=== PATIENT | female | born 1950 | race Caucasian/White ===

== ENCOUNTER → 2022-03-12 11:25 | Outpatient (CLI) | payer MEDICARE, SELFPAY ==
--- NOTE | ~2022-03-12 | MM_ITS ---
EXAMINATION: MM screening tom BI w ailyn HISTORY: Screening TECHNIQUE: Craniocaudal and mediolateral oblique 3-D tomosynthesis images were obtained and synthetic 2-D images were generated. CAD analysis was submitted and interpreted. COMPARISON: No prior mammogram is available for comparison at this institution. BREAST PARENCHYMAL COMPOSITION: The breasts are heterogeneously dense, which may obscure small masses FINDINGS: There is asymmetry in the upper outer quadrant of the left breast. There is focal asymmetry in the upper outer quadrant of the right breast anteriorly. IMPRESSION: 1. Bilateral breast asymmetries involving the upper outer quadrants. 2. Additional mammographic views and possible breast ultrasound are recommended. BI-RADS Category 0: Incomplete: Needs additional imaging evaluation. Reviewed, dictated and finalized at location A. IMPRESSION: 1. Bilateral breast asymmetries involving the upper outer quadrants. 2. Additional mammographic views and possible breast ultrasound are recommended . BI-RADS Category 0: Incomplete: Needs additional imaging evaluation.
== END ==
PROVIDERS: PCP Family Medicine; Visit Provider Nurse Practitioner Gerontology
DX: Z12.31 Encounter for screening mammogram for malignant neoplasm of breast (principal); R92.8 Other abnormal and inconclusive findings on diagnostic imaging of breast
CPT/HCPCS: 77063; 77067

== ENCOUNTER → 2022-04-02 08:09 | Outpatient (CLI) | payer MEDICARE, SELFPAY ==
--- NOTE | ~2022-04-02 | MMUS_ITS ---
EXAMINATION: MM diagnostic tom BI w ailyn, US breast BI complete HISTORY: Asymmetry in upper outer quadrant of left breast in anterior upper quadrant of right breast reported on 03/12/2022 screening mammogram examinations TECHNIQUE: Additional 3-D tomosynthesis images of both breasts were performed and synthetic 2-D image s were generated. CAD analysis was submitted and interpreted. High resolution bilateral complete [facility] st ultrasound including all 4 quadrants and subareolar areas was performed. COMPARISON: 03/12/2022 bilateral screening mammogram BREAST PARENCHYMAL COMPOSITION: The breasts are heterogeneously dense, which may obscure small masses . FINDINGS: MAMMOGRAPHIC FINDINGS: No suspicious mass or malignant calcification either breast is noted. There is suggestion of some arc hitectural distortion in the upper central and inner left breast. (MLO Tomosynthesis image 40/69). Heterogeneous asymmetric density of the breasts may obscure masses in either breast. Complete bilater al breast ultrasound examination was performed. ULTRASOUND: Right breast: 12:00 6 cm from nipple: 5 x 5.6 mm cyst with through transmission posterior enhancement 1:00 1 cm from nipple: 2.9 x 4.8 mm cyst with through transmission posterior enhancement 11:00 2 cm from nipple: 3 x 3.9 mm cyst Left breast: 1:00 3 cm from nipple: Parallel circumscribed 3.8 x 5.8 mm hypoechoic lesion without internal vascula rity or posterior shadowing 2:00 6 cm from nipple: 2.6 x 3.2 mm hypoechoic lesion without internal vascularity or posterior shado wing. The margins are mildly irregular. 6 month follow-up ultrasound imaging is recommended 4:00 2 cm from nipple: 2.4 x 4 mm cyst with through transmission posterior enhancement IMPRESSION: 1. Probable benign findings 2. 6 month diagnostic left mammogram and left breast ultrasound follow-up is recommended BI-RADS category 3, probably benign findings. Reviewed, dictated and finalized at location A. STRAINER IMPRESSION: 1. Probable benign findings 2. 6 month diagnostic left mammogram and left breast ultrasound follow-up is re commended BI-RADS category 3, probably benign findings.
== END ==
PROVIDERS: PCP Family Medicine; Visit Provider Physician Assistant
DX: R92.8 Other abnormal and inconclusive findings on diagnostic imaging of breast (principal)
CPT/HCPCS: 76641; 77062; 77066; G0279

== ENCOUNTER → 2022-10-01 08:42 | Outpatient (CLI) | payer MEDICARE, SELFPAY ==
--- NOTE | ~2022-10-01 | MMUS_ITS ---
EXAMINATION: MM diagnostic tom LT w ailyn, US breast LT limited HISTORY: Six-month follow-up for probably benign left breast masses TECHNIQUE: Craniocaudal, mediolateral, and mediolateral oblique 3-D tomosynthesis images of the left breast were performed and synthetic 2-D images were generated. CAD analysis was submitted and interpr eted. High resolution limited left breast ultrasound was performed. COMPARISON: 04/02/2022, 03/12/2022 BREAST PARENCHYMAL COMPOSITION: The breasts are heterogeneously dense, which may obscure small masses . FINDINGS: MAMMOGRAPHIC FINDINGS: No suspicious mass, calcification, or architectural distortion are identified to suggest malignancy. There has been no suspicious interval change. ULTRASOUND: There is a stable 6 mm x 4 mm oval, circumscribed, parallel, hypoechoic mass with no posterior featur es or internal vascularity at the 1:00 location 3 cm from the nipple. Small cysts are also noted in t he upper outer quadrant of the breast. IMPRESSION: 1. Stable, probably benign left breast mass. 2. Recommend 6 month follow-up diagnostic mammogram and left breast ultrasound. BI-RADS category 3, probably benign findings. Reviewed, dictated and finalized at location A. IMPRESSION: 1. Stable, probably benign left breast mass. 2. Recommend 6 month follow-up diagnostic mammogram and left breast ultrasound. BI-RADS category 3, probably benign findings.
== END ==
PROVIDERS: PCP Family Medicine; Visit Provider Physician Assistant
DX: R92.8 Other abnormal and inconclusive findings on diagnostic imaging of breast (principal)
CPT/HCPCS: 76642; 77061; 77065; G0279

== ENCOUNTER 2023-03-14 08:27 | Outpatient (CLI) | payer MEDICARE, SELFPAY ==
--- NOTE | ~2023-03-14 | NM_ITS ---
EXAMINATION: NM brian stress w perfusion DATE: 03/14/2023 12:50 CDT INDICATION: Chest pain TECHNIQUE: Rest images were obtained following intravenous administration of 9.4 mCi Tc99m 30. The pa tient was infused intravenously with Lexiscan (regadenoson). Then, mCi Tc99m tetrofosmin (Myoview) wa s administered intravenously, and stress images were obtained. Data was reconstructed into short axis and horizontal and vertical long axis SPECT images. Gated SPECT images were also obtained. COMPARISON: None. FINDINGS: There is no definite reversible or fixed perfusion abnormality to suggest ischemia or infar ction. There is no segmental wall motion abnormality. Left ventricular ejection fraction measures 7 7%. IMPRESSION: 1. No definite ischemia or infarct. 2. Normal left ventricular ejection fraction measuring 77%. Reviewed, dictated and finalized at location B.
--- NOTE | 2023-03-14 08:39 | ECHO_ITS ---
Patient Info Name: Evelin Harper Age: 73 years : 1950 Gender: Female Ht: 63 in Wt: 188 lbs BSA: 1.98 m2 HR: 80 bpm BP: 134 / 71 mmHg Heart Rhythm: Sinus Rhythm Technical Quality: Fair Exam Date: 03/14/2023 8:52 AM Exam Location: [facility] Patient Status: Outpatient Admit Date: 03/14/2023 Staff Ordering Physician: Tristan Beebe DO Preform Machine Operator: Kaylee Garcia RDCS Attending Provider: Tristan Beebe DO Referring Physician: Abiel PEOPLES; Exam Type: CA echo doppler color flow Study Info Indications R06.09 - Other forms of dyspnea R07.89 - Other chest pain Complete two-dimensional, color flow and Doppler transthoracic echocardiogram is performed. Summary 1. Complete two-dimensional, color flow and Doppler transthoracic echocardiogram is performed. 2. Left ventricular chamber dimension is normal. 3. Left ventricular systolic function is normal, estimated at 65-70%. 4. The left ventricular diastolic function is grade I diastolic dysfunction. 5. E/e' 12 is mildly elevated. 6. There is mild aortic valve sclerosis. 7. There is very mild aortic valve stenosis based on a peak velocity of 196 cm/s, mean gradient of 8 mmHg, and aortic valve area of 2.0 cm2. 8. There is trace mitral valve regurgitation. 9. No pulmonary hypertension, estimated pulmonary arterial systolic pressure is 23 mmHg. Left Ventricle E/e' 12 is mildly elevated. Left ventricular chamber dimension is normal. Left ventricular systolic function is normal, estimated at 65-70%. The left ventricular diastolic function is grade I diastolic dysfunction. Right Ventricle Right ventricular chamber dimension is normal. Right ventricular systolic function is normal. Left Atria Left atrial chamber dimension is normal. Right Atria Right atrial chamber dimension is normal. Aortic Valve There is very mild aortic valve stenosis based on a peak velocity of 196 cm/s, mean gradient of 8 mmHg, and aortic valve area of 2.0 cm2. The aortic valve is probable trileaflet. There is mild aortic valve sclerosis. There is no aortic valve regurgitation. Pulmonic Valve There is no pulmonic regurgitation. Mitral Valve There is no mitral valve stenosis. There is trace mitral valve regurgitation. Tricuspid Valve There is no tricuspid valve regurgitation. No pulmonary hypertension, estimated pulmonary arterial systolic pressure is 23 mmHg. Pericardium/Pleural There is no pericardial effusion. Inferior Vena Cava Normal inferior vena cava with >50% collapse upon inspiration consistent with normal right atrial pressure, 5 mmHg. Aorta The aortic root size at the sinus of Valsalva is normal. Left Ventricular Outflow Tract Name Value Normal LVOT 2D LVOT Diameter 2.0 cm LVOT Doppler LVOT Peak Gradient 5 mmHg LVOT Mean Gradient 2 mmHg LVOT VTI 25 cm LVOT VTI/AV VTI Ratio 0.7 LVOT Stroke Volume 73 ml LVOT CO 5.0 l/min LVOT CI 2.5 l/min/m2 Pulmonic Valve
--- NOTE | 2023-03-14 10:12 | EST_ITS ---
Patient Info Name: Evelin Harper Age: 73 years : 1950 Gender: Female Ht: 63 in Wt: 188 lbs BSA: 1.98 m2 HR: 80 bpm BP: 63 / 59 mmHg Heart Rhythm: Sinus Rhythm Exam Date: 03/14/2023 10:20 AM Exam Location: [facility] Stress Patient Status: Outpatient Admit Date: 03/14/2023 Staff Ordering Physician: Tristan Beebe DO Attending Provider: Tristan Beebe DO Exercise Technologist: Dominique Paniagua CT Exercise Physician: Tristan Beebe DO Exam Type: CA stress brian w NM Study Info Indications Z01.810 - Encounter for preprocedural cardiovascular examination R07.89 - Other chest pain A regadenoson stress test was performed. Summary 1. 1. Negative lexiscan stress test for ischemic ST changes by ECG criteria. 2. 2. Baseline hypertension. 3. 3. Nuclear scan to follow and will be reported separately. Please correlate with it. 4. 4. Patient informed of the above results. Protocol: Lexiscan Stress ECG Details Stage: REST Duration (min): 3 min : 14 sec HR (bpm): 76 SBP (mmHg): 163 DBP (mmHg): 59 Stage: REST Duration (min): 7 min : 52 sec HR (bpm): 82 SBP (mmHg): 163 DBP (mmHg): 59 Stage: STAGE 1 Duration (min): 1 min : 0 sec HR (bpm): 94 SBP (mmHg): 163 DBP (mmHg): 59 Stage: RECOVERY Duration (min): 1 min : 0 sec HR (bpm): 96 SBP (mmHg): 219 DBP (mmHg): 51 Stage: RECOVERY Duration (min): 2 min : 0 sec HR (bpm): 88 SBP (mmHg): 219 DBP (mmHg): 51 Stage: RECOVERY Duration (min): 3 min : 0 sec HR (bpm): 84 SBP (mmHg): 219 DBP (mmHg): 51 Stage: RECOVERY Duration (min): 3 min : 22 sec HR (bpm): 79 SBP (mmHg): 243 DBP (mmHg): 53 Rest HR: 82 bpm Peak HR: 98 bpm Rest Sys BP: 163 mmHg Peak Sys BP: 170 mmHg Max Pred HR: 149 bpm % Max Pred HR: 66 % Target HR: 127 bpm Max RPP: 16,660 bpm*mmHg Termination Reason: Completed protocol Cardiac Symptoms: Shortness of breath Total Time: 1 min : 0 sec Rest Hudson BP: 59 mmHg Peak Hudson BP: 60 mmHg Total Dose: 0.4 mg Resting ECG Sinus rhythm, RBBB. Stress ECG No ST changes. Arrhythmias None. Report Signatures
== END 2023-03-14 08:28 | disposition home or self-care (01) ==
PROVIDERS: PCP Family Medicine; Visit Provider Internal Medicine Cardiovascular Disease
DX: R07.9 Chest pain, unspecified (principal); R06.09 Other forms of dyspnea
CPT/HCPCS: 78452; 93017; 93306; A9502; J2785

== ENCOUNTER 2023-03-23 10:06 | Outpatient (CLI) | payer MEDICARE, SELFPAY ==
[2023-03-23 10:34] LABS: Hematocrit 37.2 % (37.0-47.0); Hemoglobin 12.4 g/dL (12.0-15.0)
[2023-03-23 10:45] LABS: Albumin Level 4.8 g/dL (3.5-5.1); Estimated Glomerular Filt Rate 40
== END 2023-03-23 10:07 | disposition home or self-care (01) ==
PROVIDERS: PCP Family Medicine; Visit Provider Orthopaedic Surgery
DX: M17.0 Bilateral primary osteoarthritis of knee (principal); E78.2 Mixed hyperlipidemia; I10 Essential (primary) hypertension; Z01.818 Encounter for other preprocedural examination
CPT/HCPCS: 36415; 82040; 82565; 85014; 85018

== ENCOUNTER 2023-03-25 10:08 | Outpatient (CLI) | payer MEDICARE, SELFPAY ==
--- NOTE | ~2023-03-25 | CT_ITS ---
EXAMINATION: CT LE LT wo con DATE: 03/25/2023 10:30 INDICATION: Left knee osteoarthritis for preoperative planning TECHNIQUE: High resolution computed tomography (CT) of the left lower extremity from the hip through the ankle was performed without intravenous contrast. Additional sagittal and coronal reconstructions were performed. Automated exposure control and iterative reconstruction technique were employed. The dose-length product was 2093.81 mGy-cm. COMPARISON: Bilateral knee radiographs dated 01/03/2023 FINDINGS: Bone alignment is normal. No fracture. Mild osteoarthritis with no joint effusion at the left hip. Tr icompartmental osteoarthritis at the left knee with moderate size marginal osteophytes in all 3 amber rtments. There is medial compartment predominant joint space narrowing which appears severe on the pr ior weightbearing images and is underestimated on the current nonweightbearing imaging. There is sugg estion of some early remodeling with subarticular eburnation along the anteromedial margin of the med ial tibial plateau. Small left knee joint effusion. Minimal to mild polyarticular osteoarthritis at t he left ankle and visualized mid and hindfoot. Heterotopic ossification along the tibial side of the deep deltoid ligament at the left ankle likely sequela of chronic ankle sprain. Small plantar calcane al spur. Soft tissues in the left lower limb are unremarkable. No pathologically enlarged left pelvic or inguinal lymphadenopathy. IMPRESSION: 1. Severe medial compartment predominant tricompartmental osteoarthritis at the left knee. Reviewed, dictated and finalized at location A.
== END 2023-03-25 10:09 | disposition home or self-care (01) ==
PROVIDERS: PCP Family Medicine; Visit Provider Orthopaedic Surgery
DX: M17.12 Unilateral primary osteoarthritis, left knee (principal)
CPT/HCPCS: 73700

== ENCOUNTER → 2023-04-29 09:12 | Outpatient (CLI) | payer MEDICARE, SELFPAY ==
--- NOTE | ~2023-04-29 | MMUS_ITS ---
EXAMINATION: MM diagnostic tom BI w ailyn, US breast LT limited HISTORY: Six-month follow-up for probably benign left breast mass TECHNIQUE: Craniocaudal, mediolateral, and mediolateral oblique 3-D tomosynthesis images of the ed ts were performed and synthetic 2-D images were generated. CAD analysis was submitted and interpreted . High resolution limited left breast ultrasound was performed. COMPARISON: 10/01/2022, 04/02/2022, 03/12/2022 BREAST PARENCHYMAL COMPOSITION: The breasts are heterogeneously dense, which may obscure small masses . FINDINGS: MAMMOGRAPHIC FINDINGS: No suspicious mass, calcification, or architectural distortion are identified in either breast to sug gest malignancy. There has been no suspicious interval change. ULTRASOUND: There is a stable 6 mm x 4 mm oval, circumscribed, parallel, hypoechoic mass with no posterior featur es or internal vascularity at the 1:00 location, 3 cm from the nipple. Cysts are noted at the 2:00 lo cation, 6 cm from the nipple in the 4:00 location, 2 cm from the nipple. IMPRESSION: 1. Stable, probably benign left breast mass. 2. Given one year of interval stability, recommend 12 month followup bilateral diagnostic mammogram a nd left breast ultrasound. BI-RADS category 3, probably benign findings. Reviewed, dictated and finalized at location A. OLL OFFICER IMPRESSION: 1. Stable, probably benign left breast mass. 2. Given one year of interval stability, recommend 12 month followup bilateral diagnostic mammogram and left breast ultrasound. BI-RADS category 3, probably benign findings.
== END ==
PROVIDERS: PCP Family Medicine; Visit Provider Physician Assistant
DX: R92.8 Other abnormal and inconclusive findings on diagnostic imaging of breast (principal)
CPT/HCPCS: 76642; 77062; 77066; G0279

== ENCOUNTER 2023-05-27 14:15 | Outpatient (CLI) | payer MEDICARE, SELFPAY ==
--- NOTE | ~2023-05-27 | CT_ITS ---
EXAMINATION: CT LE LT wo con DATE: 05/27/2023 15:17 INDICATION: Left knee pain. Preop planning. TECHNIQUE: Computed tomography (CT) of the left lower limb was performed without intravenous contrast . Automated exposure control and iterative reconstruction technique were employed. The dose-length pr oduct was 2089.89 mGy-cm. COMPARISON: CT 03/25/2023, radiographs 01/03/2023 FINDINGS: The left hip demonstrate normal bone alignment. No fracture. There is mild left hip osteoar thritis. The knee demonstrates normal bone alignment. No fracture. There is severe osteoarthritis of medial and patellofemoral compartments and moderate osteoarthritis of lateral compartment. There is a small knee joint effusion. IMPRESSION: 1. Severe left knee osteoarthritis. 2. Small left knee joint effusion. Reviewed, dictated and finalized at location E. MENT EDUCATION SPECIALIST
== END 2023-05-27 14:16 | disposition home or self-care (01) ==
LOC: ANHIMG 14:15
PROVIDERS: PCP Family Medicine; Visit Provider Orthopaedic Surgery
DX: M17.12 Unilateral primary osteoarthritis, left knee (principal)
CPT/HCPCS: 99199

== ENCOUNTER 2023-07-22 11:45 | Outpatient (CLI) | payer MEDICARE, SELFPAY ==
[2023-07-22 13:37] LABS: Basophils Absolute Auto 0.1 K/mm3 (0.0-0.1); Basophils Percent Auto 0.6 % (0.2-1.2); Eosinophils Absolute Auto 0.3 K/mm3 (0-0.3); Eosinophils Percent Auto 3.2 % (0-4.4); Hematocrit 36.7 % (37.0-47.0); Hemoglobin 12.2 g/dL (12.0-15.0); Immature Granulocyte Absolute 0.02 K/mm3 (0.00-0.031); Immature Granulocyte Percent A 0.2 % (0-0.5); Lymphocytes Absolute Auto 2.51 K/mm3 (0.9-3.2); Lymphocytes Percent Auto 26.4 % (18.3-44.2); Mean Corpuscular HGB Conc 33.2 g/dl (32-36); Mean Corpuscular Hemoglobin 31.8 pg (26-34); Mean Corpuscular Volume 95.6 fl (80-100); Mean Platelet Volume 9.3 fl (7.4-10.4); Monocytes Absolute Auto 0.8 K/mm3 (0.1-0.6); Monocytes Percent Auto 8.5 % (2.6-8.5); Neutrophils Absolute Auto 5.8 K/mm3 (1.3-6.7); Neutrophils Percent Auto 61.1 % (45.5-73.1); Platelet Count Result 366 k/mm3 (150-375); Red Blood Count 3.84 M/mm3 (4.2-5.4); Red Cell Distribution Width 12.3 % (11.5-14.5); White Blood Count 9.5 K/mm3 (4.5-10.0)
[2023-07-22 13:45] LABS: Urine Cotinine NEGATIVE
[2023-07-22 13:49] LABS: INR 0.9; Partial Thromboplastin Time 26.6 SECONDS (22.3-36.8); Prothrombin Time 12.1 Seconds (11.1-14.7)
[2023-07-22 13:51] LABS: Albumin Level 5.1 g/dL (3.5-5.1)
[2023-07-22 13:55] LABS: Anion Gap 10 mmol/L (8-16); Blood Urea Nitrogen 29 mg/dL (7-17); Calcium 10.6 mg/dL (8.4-10.2); Carbon Dioxide 26 mmol/L (22-30); Chloride 102 mmol/L (98-107); Estimated Glomerular Filt Rate 44; Glucose 103 mg/dL (65-110); Potassium 4.1 mmol/L (3.4-5.0); Sodium 138 mmol/L (137-145)
[2023-07-22 13:57] LABS: Hemoglobin A1C 5.9 % (<5.7)
[2023-07-22 14:51] LABS: MRSA (PCR) NOT DETECTED (NOT DETECTE)
== END 2023-07-22 11:46 | disposition home or self-care (01) ==
LOC: ANHSURGERY 11:49
PROVIDERS: Anesthesiology; PCP Family Medicine; Visit Provider Orthopaedic Surgery
DX: M17.12 Unilateral primary osteoarthritis, left knee (principal); N18.9 Chronic kidney disease, unspecified; Z51.81 Encounter for therapeutic drug level monitoring; Z01.818 Encounter for other preprocedural examination
CPT/HCPCS: 36415; 80048; 80307; 82040; 83036; 85025; 85610; 85730; 87641

== ENCOUNTER 2023-08-16 01:12 | Day surgery (SDC) | payer MEDICARE, SELFPAY ==
[2023-07-22 12:24] VITALS: BP 131/59; PULSE 76; RESP 16; TEMP 37.1; O2SAT 96; BMI 33.5
--- NOTE | 2023-07-22 12:39 | PC.NURSE ---
Report to the Outpatient Waiting Room, entrance under the green pavilion located off [facility], at time __8:30AM on date __08/16/23 . Planned Procedure Time: __10:30AM . Time changes happen often and if your time is changed the preop area will call you the afternoon before. - You and your visitor will be asked to self-screen and do not enter if you have any COVID symptoms. - A mask is optional within the hospital at this time. Patients may have clear liquids (water, carbonated beverages, clear teas, apple juice) until 3 hours prior to surgery with a maximum of 20 ounces. - No food from midnight until time of surgery. Take the following medications with a SIP of water the morning of surgery: ___NONE DO NOT STOP ANY OF YOUR OTHER PRESCRIPTION MEDICATIONS PRIOR TO SURGERY ?EXCEPT THE FOLLOWING Medications to discontinue per physician __HOLD ALL VITAMINS/SUPPLEMENTS 7 DAYS PRE-OP PER DR BERG Date to take last dose 08/08/23 Please no make-up, nail malawian, hairspray, perfume, deodorant, or body powder the day of surgery. No jewelry (including any body piercings) or valuables the day of surgery, leave them at home. Please take a shower or bath the night before, or the morning of, surgery with an antibacterial soap. Wear comfortable, loose fitting clothing. - Jewelry must be removed prior to entering the operating room. Rings and piercings that are not removed may be cut off. - The hospital will not accept responsibility for valuables. - Please leave all valuables, including medications, at home the day of surgery. If you are going home after surgery, a licensed trailer truck driver must drive you home. - NO public transportation without another adult if you receive anesthesia. - We recommend that an adult stay with you for 24 hours following discharge. - We also recommend that you do not drive, make important decision, drink alcoholic beverages, or take any drugs that were not prescribed by your health care provider for at least 24 hours after your discharge time. Follow any additional instructions given to you from your surgeon. If you or anyone in your household have experienced Covid symptoms in the past week, please notify your surgeon or the nurse liaison at the phone number below for possible testing. Telephone instructions given to ____PATIENT and asked if any additional questions and then verbalized understanding. Patient advised to call surgeon office or pre surgery nurse liaison [phone] if any additional questions.
[2023-08-16] VITALS (16 sets, daily range): BP systolic 125–169; BP diastolic 52–80; PULSE 57–109; RESP 12–21; TEMP 36.3–36.8; O2SAT 92–100
--- NOTE | ~2023-08-16 | XR_ITS ---
EXAMINATION: [id number] DATE: 08/16/2023 12:33 INDICATION: Postoperative evaluation following left total knee arthroplasty. TECHNIQUE: Anteroposterior and lateral views of the left knee were obtained. COMPARISON: CT dated 05/27/2023 FINDINGS: Left total knee arthroplasty with patellar resurfacing appears well seated and in near anatomic align ment. No fractures identified. Expected postoperative subcutaneous and intra-articular gas. IMPRESSION: 1. Left total knee arthroplasty, negative for postoperative purposes. Reviewed, dictated and finalized at location A.
--- NOTE | 2023-08-16 09:28 | WPDHPUPDATE1 ---
History and Physical Update Update Date/Time: 08/16/23 09:28 History and Physical has been reviewed, including an updated exam of the patient. There are NO changes in the patient's condition. Examination Alert oriented. No distress. Unlabored breathing. Slight limp, moderate varus deformity. No instability. Range motion 0 to 90. Trace effusion. No warmth or erythema. No distal edema. Risks, benefits, and alternatives have been discussed and questions answered. Patient agrees to proceed with procedure.
[2023-08-16] MEDS: LACTATED RINGERS 1,000 ML 30 ML IV CONT ×2 (09:45→12:16)
[2023-08-16] MEDS: ACETAMINOPHEN 500 MG TABLET 1000 MG PO ×3 (09:50→23:28)
--- NOTE | 2023-08-16 09:51 | WPDANESEPPF ---
Anes - Initial Pre Proc Eval Procedure: Operation Date: 08/16/23 10:30 Proposed Procedures p Left Total Knee Arthroplasty - Kain Almanza MD Date/Time: 08/16/23 09:51 Surgeon: Kain Almanza MD Pre Op Diagnosis: primary OA left knee Patient Data Age: 73 Gender: F Height: 1.6 m Weight: 85.7 kg Last Vital Signs Temp 98.7 F 07/22/23 12:24 Pulse 76 07/22/23 12:24 Resp 16 07/22/23 12:24 BP 131/59 L 07/22/23 12:24 Pulse Ox 96 07/22/23 12:24 O2 Del Method Room Air 07/22/23 12:24 Allergies Allergy/AdvReac Type Severity Reaction Status Date / Time Yxydajs-JTE-JtS Reductase Allergy Severe Other Verified 07/22/23 12:07 Inhibitor ezetimibe Allergy Intermediate hives, Verified 07/22/23 12:07 BURNING IN THE CHEST lisinopril AdvReac Intermediate cough Verified 07/22/23 12:07 SHELLFISH Allergy Intermediate Facial Uncoded 07/22/23 12:07 Swelling, HIVES Home Medications Medication Instructions Recorded Confirmed Type hjtfpsrblxmu-Is-akrm-minerals 1 tablet PO DAILY 11/04/20 07/22/23 History (Multiple Vitamin, Womens tablet) magnesium 200 mg tablet 250 mg PO BID 09/23/21 07/22/23 History cholecalciferol (vitamin D3) 125 125 mcg PO DAILY 01/03/23 07/22/23 History mcg (5,000 unit) capsule multivitamin,Ca,mineral-folic 1 tablet PO DAILY 01/03/23 07/22/23 History acid-herbal no.157 400 mcg tablet ([place] Maximum Strength) valerian root 500 mg capsule 500 mg PO QHS 01/03/23 07/22/23 History evolocumab 140 mg/mL subcutaneous 140 mg subcut .every 2 weeks #1 mL 06/17/23 07/22/23 Rx syringe (Repatha Syringe) Super Beet 2 gummy PO DAILY 07/22/23 07/22/23 History amlodipine 10 mg tablet 10 mg PO HS 07/22/23 07/22/23 History biotin 1,250 mcg-collagen 50 1 tablet PO QAM 07/22/23 07/22/23 History mg-vit C 67.5 mg-vit E-herbal chew tablet irbesartan 300 1 tablet PO QAM 07/22/23 07/22/23 History mg-hydrochlorothiazide 12.5 mg tablet omega 7-iia-zys-fish oil 100 1 cap PO HS 07/22/23 07/22/23 History mg-160 mg-1,000 mg capsule (Fish Oil) aspirin 81 mg tablet,delayed 81 mg PO BID 14 days #28 tabs 08/16/23 Rx release oxycodone-acetaminophen 5 mg-325 1 - 2 tablet PO Q4-6H PRN pain #30 08/16/23 Rx mg tablet tabs prednisone 5 mg tablet 5 mg PO DAILY 3 weeks #21 tabs 08/16/23 Rx Patient hx anesthesia problems: none Family hx anesthesia problems: none Results Review: All pre-operative results and documents have been reviewed as part of the pre-operative evaluation. FORMERLY [facility], [facility] Past Medical History Medical History Benign essential HTN Bilateral knee swelling Breast cancer screening Elevated BP without diagnosis of hypertension Elevated fasting blood sugar Encounter for medical examination to establish care Fatigue Hyperlipidemia Knee pain Lipid screening Pneumonia Postmenopausal Surgical History Surgical History History of bladder surgery History of hysterectomy for benign disease (~1986) Family History Family History Father Family history of lung disease Unknown History of blood pressure problems Social History Social History Social History: Smoking status: Never smoker Second hand tobacco smoke exposure: No Alcohol intake: never Substance use: never Substance use type: does not use Lack of Transportation: No Lack of Food: Never True Current Housing: I Have Housing Concerned About Future Housing: No Difficulty Paying Gas/Electric Bills: No Difficulty Paying for Meds: No Currently Unemployed: YES Education: Decline to Answer Difficulty w/ Childcare or Family Care: No Living arrangements: with family Additional living arrangements comments:
[2023-08-16] MEDS: ceFAZolin 2 GM/D5W 50 ML 2 GM/50 ML BAG IVPB ×2 (10:08→17:02)
--- NOTE | 2023-08-16 10:35 | WPDANESPNB ---
Anes - Peripheral Nerve Block Date/Time: 08/16/23 10:35 I have discussed with the patient/family/POA the placement of a peripheral nerve block for post-operative pain management, including associated risks, benefits, complications, and side effects. Alternative methods of post-operative analgesia were detailed. Questions were solicited and answers provided to the satisfaction of the patient/family/POA. Time-Out: A pre-procedural Time-Out was completed immediately before starting the procedure and confirmed: Patient Identification, Site, Procedure, Patient Position and the Availability of Requisite Equipment. Clinical Indications: Acute post-operative pain management requested by the operative surgeon. Nerve Block Insertion Note Anes-nerve block: adductor canal left Patient position: supine Skin prep: chlorhexidine Needle: 22 gauge, stimulating, insulated echogenic needle. Needle length: 80 mm Technique: ultrasound Technique comment: mid2mg [id number] Injectate: bupivacaine 0.5% with epi 5 mcg/ml (30ml no epi ) and dexamethasone (mg) (4) Observations: tolerated well Complications: none Procedure start time:: 955 Procedure end time:: 1002
[2023-08-16] MEDS: SODIUM CHLORIDE 0.9% IV 37.7 ML, MORPHINE SULFATE INJ (*CRX) 2 MG, ROPivacaine HCL 1% 2... INFILTRATE (10:42)
--- NOTE | 2023-08-16 15:00 | ADMGEN ---
This patient, Evelin Harper, was admitted to -. Patient/family oriented to hospital policies and general routines including ID bracelet, bed and alarms, visiting hours, pain management, procedures, bathroom and other care routines, personal items, smoking policy, room service/diet, and visiting hours. Information on how to activate the Rapid Response Team has been discussed. Patient/Family are encouraged to report perceived risks to care and to ask questions if they do not understand what they are told or what they should do.
--- NOTE | 2023-08-16 16:50 | P.OP_ITS ---
Procedure Note - Detailed Date of Procedure 08/16/23 Pre-op Diagnosis primary OA left knee Post-op Diagnosis Same Procedure Performed Total knee arthroplasty, left Surgeon Kain Almanza MD Restaurant Assistant Keila Villarreal PA-C Anesthesia General and Regional (subsartorial block) Description of Procedure The patient was brought to the operating room. A general anesthetic was administered. The leg was prepped and draped in the usual sterile fashion. The limb was elevated and the tourniquet inflated to 300 mmHg. A longitudinal incision was created along the medial border of the patella and patellar tendon, and a subvastus approach to the knee was performed. No medial release was taken. The knee was then flexed. The osteophytes were carefully removed. The intramedullary guide was placed in the femoral canal. The distal femoral resection was then taken with the oscillating saw. The collateral ligaments were carefully protected. The tibia was carefully exposed. The jig was applied, and the proximal tibia was resected according to preoperative plan. The knee was balanced in extension. Appropriate releases were taken where needed. The anterior cruciate ligament and meniscal remnants were removed. The posterior cruciate ligament was preserved. The patella was measured. Patellar resection was carried out with the oscillating saw. The lug holes drilled. The femur was sized and rotation assessed using a combination of gap balancing, posterior referencing, and the AP axis. The cuts were caliper confirmed to match the CT preoperative planning software. The 4 in 1 cutting block was used to finish the femoral cuts after equal gaps were assured. The osteophytes were carefully removed from the back of the knee. The knee was copiously irrigated with antibiotic solution periodically throughout the procedure. The meniscal remnants were removed. The spacer block was used to confirm equal flexion and extension gaps. No further releases were needed. The tibia was sized and broached. The bony surfaces were prepared for cementing with pulsatile lavage. The real tibia was cemented into position. The femur was press-fit. The patella was press-fit. Excess cement was carefully removed. Patellar tracking was carefully assessed. No additional releases were required. Copious irrigation then performed. The wound was closed with #1 Vicryl suture, #2, 2-0, and 3-0 barbed suture, followed by Steri-Strips. A sterile bulky dressing was applied. Meticulous hemostasis was maintained throughout the procedure, and the bipolar cautery device was used. The pain relieving mixture was injected into the periarticular tissues during the procedure. There were no complications. The patient was extubated and brought to the recovery room in stable condition after the application of sterile dressing with Fan bandage. Implants [employer] Triathlon knee system, low profile cemented tibia size 3, press-fit cruciate retaining femoral component size 3, 11 mm cruciate retaining polyethylene insert. 35mm asymmetric tritanium patella component. Estimated Blood Loss 100 Drains No Pathology None sent Complications No immediate complications Condition Stable Disposition PACU [facility] Billing Surgery - Charge Forward: Surgery Billing
[2023-08-16] MEDS: ASPIRIN 81 MG ENTERIC TABLET PO (17:03)
[2023-08-16] MEDS: SENNA/DOCUSATE SODIUM TABLET 2 TAB PO (17:03)
[2023-08-16] MEDS: oxyCODONE HCL (*CRX) 5 MG TAB IR PO (20:32)
[2023-08-16] MEDS: FAMOTIDINE 20 MG TABLET PO (20:32)
[2023-08-16] MEDS: amLODIPine BESYLATE 5 MG TABLET 10 MG PO (20:32)
[2023-08-17 00:17] VITALS: BP 124/61; PULSE 101; RESP 18; TEMP 37; O2SAT 94
[2023-08-17] MEDS: ceFAZolin 2 GM/D5W 50 ML 2 GM/50 ML BAG IVPB ×2 (02:59→09:14)
[2023-08-17 05:27] VITALS: BP 125/55; PULSE 81; RESP 16; TEMP 36.9; O2SAT 96
[2023-08-17] MEDS: ACETAMINOPHEN 500 MG TABLET 1000 MG PO ×2 (05:33→11:22)
[2023-08-17 05:48] LABS: Basophils Percent Auto 0.1 % (0.2-1.2); Hematocrit 32.8 % (37.0-47.0); Immature Granulocyte Absolute 0.08 K/mm3 (0.00-0.031); Immature Granulocyte Percent A 0.5 % (0-0.5); Lymphocytes Absolute Auto 1.29 K/mm3 (0.9-3.2); Lymphocytes Percent Auto 7.8 % (18.3-44.2); Mean Corpuscular HGB Conc 33.5 g/dl (32-36); Mean Corpuscular Hemoglobin 31.7 pg (26-34); Mean Corpuscular Volume 94.5 fl (80-100); Mean Platelet Volume 9.4 fl (7.4-10.4); Monocytes Absolute Auto 1.6 K/mm3 (0.1-0.6); Monocytes Percent Auto 9.8 % (2.6-8.5); Neutrophils Absolute Auto 13.5 K/mm3 (1.3-6.7); Neutrophils Percent Auto 81.8 % (45.5-73.1); Platelet Count Result 328 k/mm3 (150-375); Red Blood Count 3.47 M/mm3 (4.2-5.4); White Blood Count 16.6 K/mm3 (4.5-10.0)
[2023-08-17 06:01] LABS: Anion Gap 10 mmol/L (4-12); Blood Urea Nitrogen 34 mg/dL (7-17); Calcium 9.3 mg/dL (8.4-10.2); Carbon Dioxide 22 mmol/L (22-30); Chloride 104 mmol/L (98-107); Estimated CRCL calculation 37 ml/min; Estimated Glomerular Filt Rate 40; Glucose 118 mg/dL (65-110); Potassium 4.2 mmol/L (3.4-5.0); Sodium 136 mmol/L (137-145)
--- NOTE | 2023-08-17 08:07 | PM.DS ---
DS: Admitting Diagnosis Discharge Date 08/17/23 Admitting Diagnosis OA knee Left DS: Discharge Diagnosis Discharge Diagnosis (1) Status post total left knee replacement: Code(s): Z96.652 - Presence of left artificial knee joint Status: Acute Assessment and Plan: Postop day 1: Left total knee arthroplasty. Patient tolerated procedure well. No complications. Pain manageable with pain medication. No numbness or tingling. We had a lengthy discussion regarding postoperative wound care, limitations, expectations, and exercises. Patient shows good understanding. She has had initial physical therapy and is tolerating it well. DVT prophylaxis: 81 mg baby aspirin b.i.d. for 14 days. Pain medication: Percocet. Ibuprofen. Prednisone. Patient has followup appointment with Dr. Almanza in 3 weeks. DS: Summary Hospital Course Reason for hospitalization: Total knee arthroplasty Hospital Course: Patient tolerated procedure well. Has had initial PT/OT. Status at Discharge Functional status at discharge: uses cane/walker Overall status at discharge: patient is progressing back to baseline Time Spent with Patient Time attestation: Total time spent providing and/or coordinating discharge services: Exam Narrative: 73-year-old overweight female. Resting comfortably in bed. Alert and oriented x3. No acute distress. Wearing compression socks bilaterally. Dressing intact with pea sized area of dried bloody drainage on Mepilex. Mild swelling. No ecchymosis. No erythema. No hematoma. Excellent quad function. Range of motion limited due to pain. 0-100. Calf nontender. Neurologic status intact. No varicosities. Distal pulses palpable. DS: Data Data Completed and Pending Labs on day of discharge: Labs from last 24 hours 08/17/23 08/16/23 04:57 09:39 WBC 16.6 H RBC 3.47 L Hgb 11.0 L Hct 32.8 L MCV 94.5 MCH 31.7 MCHC 33.5 RDW 12.0 Plt Count 328 MPV 9.4 Immature Gran % (Auto) 0.5 Neut % (Auto) 81.8 H Lymph % (Auto) 7.8 L Tripp % (Auto) 9.8 H Eos % (Auto) 0.0 Baso % (Auto) 0.1 L Lymph # (Auto) 1.29 Tripp # (Auto) 1.6 H Eos # (Auto) 0.0 Baso # (Auto) 0.0 Abs Immat Gran (auto) 0.08 H Absolute Neuts (auto) 13.5 H Absolute Nucleated RBC 0.000 Nucleated RBC % 0.0 Sodium 136 L Potassium 4.2 Chloride 104 Carbon Dioxide 22 Anion Gap 10 BUN 34 H Creatinine 1.30 H Estim Creat Clear Calc 37 Estimated GFR 40 L Glucose 118 H Calcium 9.3 Blood Type B Positive Antibody Screen Negative Discharge Plan Discharge Patient Disposition: Home, Self-Care Discharge Instructions: See green instruction sheets Stand Alone Forms: General Discharge Instructions Follow-up/Referrals: Keila Villarreal PA [Physician Passenger Car Inspector] - Discharge Medications: New aspirin 81 mg tablet,delayed release (DR/EC) 81 mg PO BID 14 Days Qty: 28 0RF oxycodone-acetaminophen 5-325 mg tablet 1 - 2 tablet PO Q4-6H MDD 6 PRN (Reason: pain) Qty: 30 0RF prednisone 5 mg tablet 5 mg PO DAILY 21 Days Qty: 21 0RF Continued Multiple Vitamin, Womens Tablet 1 tablet PO DAILY Estroven Maximum Strength 400 mcg tablet 1 tablet PO DAILY cholecalciferol (vitamin D3) 125 mcg (5,000 unit) capsule 125 mcg PO DAILY valerian root 500 mg capsule 500 mg PO QHS Repatha Syringe 140 mg/mL syringe 140 mg subcut .every 2 weeks Qty: 1 11RF owoufi-jijcpnha-mxh C-E-herbal 1,250 mcg-50 mg -67.5 mg-15 mg tablet,chewable 1 tablet PO QAM Fish Oil 100-160-1,000 mg capsule 1 cap PO HS magnesium 200 mg tablet 250 mg PO BID Super Beet 2 gummy PO HS amlodipine 10 mg tablet 10 mg PO HS irbesartan-hydrochlorothiazide 300-12.5 mg tablet 1 tablet PO QAM
[2023-08-17] MEDS: FAMOTIDINE 20 MG TABLET PO (09:12)
[2023-08-17] MEDS: hydroCHLOROthiazide 12.5 MG CAPSULE PO (09:12)
[2023-08-17] MEDS: SENNA/DOCUSATE SODIUM TABLET 2 TAB PO (09:12)
[2023-08-17] MEDS: predniSONE 5 MG TABLET PO (09:12)
[2023-08-17] MEDS: ASPIRIN 81 MG ENTERIC TABLET PO (09:12)
[2023-08-17] MEDS: IRBESARTAN 150 MG TABLET 300 MG PO (09:12)
[2023-08-17] MEDS: oxyCODONE HCL (*CRX) 5 MG TAB IR PO (09:13)
== END 2023-08-17 12:30 | disposition home or self-care (01) ==
LOC: ANHSURGERY 08:22 → ANH2MED 16:01
PROVIDERS: Physician Assistant Surgical; PCP Family Medicine; Visit Provider Orthopaedic Surgery
PROC: (CPT 27447; principal; 2023-08-16 10:30)
DX: M17.12 Unilateral primary osteoarthritis, left knee (principal); G89.18 Other acute postprocedural pain; I10 Essential (primary) hypertension; E78.5 Hyperlipidemia, unspecified; E66.9 Obesity, unspecified; Z68.33 Body mass index [BMI] 33.0-33.9, adult
CPT/HCPCS: 27447; 64447; 36415; 73560; 80048; 80307; 82040; 83036; 85025; 85610; 85730; 86850; 86900; 86901; 87641; 97110; 97161; 97165; A9270; C1713; C1776; J0171; J0690; J1100; J1885; J2250; J2270; J2405; J2704; J2795; J3010; J7120; J7512

== ENCOUNTER 2023-11-22 09:43 | Outpatient (CLI) | payer MEDICARE, SELFPAY ==
--- NOTE | ~2023-11-22 | US_ITS ---
EXAMINATION: US renal BI DATE: 11/22/2023 12:58 INDICATION: Hypertensive chronic kidney disease TECHNIQUE: Multiple ultrasound grayscale images of the kidneys were obtained. COMPARISON: None. FINDINGS: The right kidney measures 10.5 x 5.7 x 4.6 cm. The left kidney measures 8.2 x 4.8 x 5.8 cm. The kidne ys demonstrate normal echogenicity. There are bilateral anechoic renal cysts measuring 1.3 similar on the right and 1.7 cm and 1.1 cm on the left. There is no hydronephrosis in either kidney. No stones identified. The bladder is normal. IMPRESSION: 1. Simple appearing bilateral renal cysts measuring up to 1.7 cm on the left. Otherwise normal kidne ys with no hydronephrosis. Reviewed, dictated and finalized at location B. IMPRESSION: 1. Simple appearing bilateral renal cysts measuring up to 1.7 cm on the left. Otherwise normal kidneys with no hydronephrosis.
== END 2023-11-22 09:44 ==
LOC: MICIMG 09:44
PROVIDERS: PCP Family Medicine; Visit Provider Internal Medicine Nephrology
DX: E55.9 Vitamin D deficiency, unspecified (principal); I12.9 Hypertensive chronic kidney disease with stage 1 through stage 4 chronic kidney disease, or unspecified chronic kidney disease; N18.32 Chronic kidney disease, stage 3b; N25.81 Secondary hyperparathyroidism of renal origin; N28.1 Cyst of kidney, acquired
CPT/HCPCS: 76775

== ENCOUNTER 2024-08-27 10:28 | Outpatient (CLI) | payer MEDICARE, SELFPAY ==
--- NOTE | ~2024-08-27 | XR_ITS ---
Left Hand Technique: PA, oblique, and lateral views were obtained. Clinical History: Carpal tunnel syndrome Findings: No acute fracture or dislocation is seen. Osseous alignment is anatomic. There is moderate degenerative change of the first CMC joint. There is advanced degenerative change of the third DIP kayleen int. There is mild degenerative change of the second DIP joint.. Soft tissues are unremarkable. Impression: Degenerative changes, as above. Reviewed, dictated and finalized at location M. Impression: Degenerative changes, as above.
--- NOTE | ~2024-08-27 | XR_ITS ---
Right Hand Technique: PA, oblique, and lateral views were obtained. Clinical History: Carpal tunnel syndrome Findings: No acute fracture or dislocation is seen. Osseous alignment is anatomic. There is moderate degenerative change of the first CMC joint. There is moderate degenerative change of the DIP joints i n the fingers.. Soft tissues are unremarkable. Impression: Degenerative changes, as above. Reviewed, dictated and finalized at location M. Impression: Degenerative changes, as above.
== END 2024-08-27 10:29 | disposition home or self-care (01) ==
PROVIDERS: PCP Family Medicine; Visit Provider Plastic Surgery
DX: G56.03 Carpal tunnel syndrome, bilateral upper limbs (principal); M19.041 Primary osteoarthritis, right hand; M19.042 Primary osteoarthritis, left hand
CPT/HCPCS: 73130

== ENCOUNTER 2024-09-05 08:55 | Outpatient (CLI) | payer MEDICARE, SELFPAY ==
--- NOTE | 2024-09-05 09:12 | ECG_ITS ---
Test Date: 2024-09-05 09:27:32 Measurements Intervals Coffey Rate: 70 P: 39 MA: 138 QRS: -3 QRSD: 101 T: 33 QT: 388 QTc: 419 Interpretive Statements SINUS RHYTHM LOW QRS VOLTAGE IN PRECORDIAL LEADS INCOMPLETE RIGHT BUNDLE BRANCH BLOCK CONSIDER INFERIOR INFARCT, AGE INDETERMINATE BASELINE ARTIFACT- II, III, AVF ABNORMAL ECG No previous ECG available for comparison Electronically Signed On 09-05-2024 09:42:55 CDT by Tristan Beebe D.O.
[2024-09-05 09:16] LABS: Hematocrit 40.1 % (37.0-47.0); Hemoglobin 13.5 g/dL (12.0-15.0)
[2024-09-05 09:31] LABS: Albumin Level 4.7 g/dL (3.5-5.1); Estimated Glomerular Filt Rate 47; Glucose 113 mg/dL (65-110)
[2024-09-05 09:37] LABS: Hemoglobin A1C 5.9 % (<5.7)
== END 2024-09-05 08:56 | disposition home or self-care (01) ==
PROVIDERS: PCP Family Medicine; Visit Provider Orthopaedic Surgery
DX: R73.09 Other abnormal glucose (principal); R79.89 Other specified abnormal findings of blood chemistry; I12.9 Hypertensive chronic kidney disease with stage 1 through stage 4 chronic kidney disease, or unspecified chronic kidney disease; M17.11 Unilateral primary osteoarthritis, right knee; Z01.818 Encounter for other preprocedural examination; N18.9 Chronic kidney disease, unspecified
CPT/HCPCS: 36415; 82040; 82565; 82947; 83036; 85014; 85018; 93005

== ENCOUNTER 2024-10-17 09:35 | Outpatient (CLI) | payer MEDICARE, SELFPAY ==
--- NOTE | 2024-10-17 11:30 | NEURO_ITS ---
Impression: # Complains of numbness of hands. ? # Evolving right Carpal Tunnel Syndrome. ? 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 ? # Normal needle/EMG exam. ?Nerve Conduction Studies Anti Sensory Summary Table ?Stim Site NR Peak (ms) P-T Amp (?V) Site1 Site2 Delta-P (ms) Dist (cm) Hernando (m/s) Left Median Anti Sensory (2-3nd Digit) Wrist ? 3.3 25.9 Wrist 2-3nd Digit 3.3 14.0 42 Wrist ? 3.2 35.8 Wrist 2-3nd Digit 3.3 14.0 42 Right Median Anti Sensory (2-3nd Digit) Wrist ? 4.6 34.5 Wrist 2-3nd Digit 4.6 14.0 30 Wrist ? 3.3 15.9 Wrist 2-3nd Digit 4.6 14.0 30 Left Radial Anti Sensory (Base 1st Digit) Wrist ? 2.4 5.2 Wrist Base 1st Digit 2.4 0.0 Right Radial Anti Sensory (Base 1st Digit) Wrist ? 2.8 11.7 Wrist Base 1st Digit 2.8 0.0 Left Ulnar Anti Sensory (5th Digit) Wrist ? 2.7 17.3 Wrist 5th Digit 2.7 14.0 52 Right Ulnar Anti Sensory (5th Digit) Wrist ? 2.4 29.5 Wrist 5th Digit 2.4 14.0 58 Motor Summary Table ?Stim Site NR Onset (ms) O-P Amp (mV) Site1 Site2 Delta-0 (ms) Dist (cm) Hernando (m/s) Left Median Motor (Abd Poll Brev) Wrist ? 3.4 2.2 Elbow Wrist 5.2 27.0 52 Elbow ? 8.6 1.7 Right Median Motor (Abd Poll Brev) Wrist ? 3.9 2.3 Elbow Wrist 4.9 26.0 53 Elbow ? 8.8 3.1 Left Ulnar Motor (Abd Dig Minimi) Wrist ? 2.5 4.6 A Elbow Wrist 4.8 27.0 56 A Elbow ? 7.3 5.0 B Elbow Wrist 4.1 19.0 46 B Elbow ? 6.6 3.6 Right Ulnar Motor (Abd Dig Minimi) Wrist ? 2.3 5.2 A Elbow Wrist 5.4 27.0 50 A Elbow ? 7.7 4.0 B Elbow Wrist 3.8 20.0 53 B Elbow ? 6.1 3.8 F Wave Studies ?NR F-Lat (ms) L-R F-Lat (ms) Left Median (Mrkrs) (Abd Poll Brev) ? 29.14 0.43 Right Median (Mrkrs) (Abd Poll Brev) ? 28.71 0.43 Left Ulnar (Mrkrs) (Abd Dig Min) ? 28.89 0.06 Right Ulnar (Mrkrs) (Abd Dig Min) ? 28.95 0.06 EMG ?Side Muscle Nerve Root Ins Act Fibs Amp Dur Recrt Comment Right 1stDorInt Ulnar C8-T1 Nml Nml Nml Nml Nml Right Ext Indicis Radial (Post Int) C7-8 Nml Nml Nml Nml Nml Right Ext Digitorum Radial (Post Int) C7-8 Nml Nml Nml Nml Nml Right BrachioRad Radial C5-6 Nml Nml Nml Nml Nml Right PronatorTeres Median C6-7 Nml Nml Nml Nml Nml Right Abd Poll Brev Median C8-T1 Nml Nml Nml Nml Nml Right ABD Dig Min Ulnar C8-T1 Nml Nml Nml Nml Nml Right FlexPolLong Median (Ant Int) C7-8 Nml Nml Nml Nml Nml Right Abd Poll Long Radial (Post Int) C7-8 Nml Nml Nml Nml Nml Left 1stDorInt Ulnar C8-T1 Nml Nml Nml Nml Nml Left Ext Indicis Radial (Post Int) C7-8 Nml Nml Nml Nml Nml Left Ext Digitorum Radial (Post Int) C7-8 Nml Nml Nml Nml Nml Left BrachioRad Radial C5-6 Nml Nml Nml Nml Nml Left PronatorTeres Median C6-7 Nml Nml Nml Nml Nml Left Abd Poll Brev Median C8-T1 Nml Nml Nml Nml Nml Left ABD Dig Min Ulnar C8-T1 Nml Nml Nml Nml Nml Left FlexPolLong Median (Ant Int) C7-8 Nml Nml Nml Nml Nml Left Abd Poll Long Radial (Post Int) C7-8 Nml Nml Nml Nml Nml
== END 2024-10-17 09:36 | disposition home or self-care (01) ==
PROVIDERS: PCP Family Medicine; Visit Provider Plastic Surgery
DX: G56.03 Carpal tunnel syndrome, bilateral upper limbs (principal); G56.21 Lesion of ulnar nerve, right upper limb
CPT/HCPCS: 95886; 95911

== ENCOUNTER 2024-11-30 08:45 | Outpatient (CLI) | payer MEDICARE, SELFPAY ==
[2024-11-30 10:19] LABS: Hematocrit 38.1 % (37.0-47.0); Hemoglobin 12.9 g/dL (12.0-15.0); Immature Granulocyte Percent A 0.3 % (0-0.5); Lymphocytes Absolute Auto 1.59 K/mm3 (0.9-3.2); Mean Corpuscular HGB Conc 33.9 g/dl (32-36); Mean Corpuscular Hemoglobin 31.0 pg (26-34); Mean Corpuscular Volume 91.6 fl (80-100); Nucleated Red Blood Cells Absolute Auto 0.000 K/mm3 (0.0-0.012); Nucleated Red Blood Cells Perc 0.0 % (0.0-0.2); Platelet Count Result 321 k/mm3 (150-375); Red Blood Count 4.16 M/mm3 (4.2-5.4); White Blood Count 6.9 K/mm3 (4.5-10.0)
[2024-11-30 10:29] LABS: Albumin Level 4.7 g/dL (3.5-5.1); Hemoglobin A1C 5.7 % (<5.7)
[2024-11-30 10:30] LABS: INR 0.9; Partial Thromboplastin Time 27.3 Seconds (22.3-36.8); Prothrombin Time 12.4 Seconds (11.1-14.7)
[2024-11-30 10:31] LABS: Anion Gap 10 mmol/L (4-12); Blood Urea Nitrogen 22 mg/dL (7-17); Calcium 9.8 mg/dL (8.4-10.2); Carbon Dioxide 24 mmol/L (22-30); Chloride 104 mmol/L (98-107); Estimated Glomerular Filt Rate 51; Glucose 104 mg/dL (65-110); Potassium 4.1 mmol/L (3.4-5.0); Sodium 138 mmol/L (137-145)
[2024-11-30 11:32] LABS: MRSA (PCR) NOT DETECTED (NOT DETECTE)
== END 2024-11-30 08:46 | disposition home or self-care (01) ==
LOC: ANHSURGERY 08:48
PROVIDERS: Anesthesiology; PCP Family Medicine; Visit Provider Orthopaedic Surgery
DX: M17.11 Unilateral primary osteoarthritis, right knee (principal); N18.32 Chronic kidney disease, stage 3b; Z01.818 Encounter for other preprocedural examination
CPT/HCPCS: 36415; 80048; 80307; 82040; 83036; 85025; 85610; 85730; 87641

== ENCOUNTER 2025-02-06 07:31 | Outpatient (CLI) | payer MEDICARE, SELFPAY ==
--- NOTE | ~2025-02-06 | NM_ITS ---
EXAMINATION: NM brian stress w perfusion DATE: 02/06/2025 10:43 INDICATION: Chest pain. TECHNIQUE: Rest images were obtained following intravenous administration of 11.4 mCi Tc99m tetrofosmin (Myoview). The patient was infused intravenously with Lexiscan (regadenoson). Then, 32 mCi Tc99m tetrofosmin (Myoview) was administered intravenously, and stress images were obtained. Data was recons tructed into short axis and horizontal and vertical long axis SPECT images. Gated SPECT images were also obtained. COMPARISON: Myocardial perfusion imaging 03/14/2023 FINDINGS: There is no definite reversible or fixed perfusion abnormality to suggest ischemia or infarction. There is no segmental wall motion abnormality. Left ventricular ejection fraction measures >70%. IMPRESSION: 1. No definite ischemia or infarct. 2. Normal left ventricular ejection fraction measuring >70%. Reviewed, dictated and finalized at location E.
--- NOTE | 2025-02-06 10:04 | ECHO_ITS ---
Patient Info Name: Evelin Harper Age: 75 years : 1950 Gender: Female Ht: 63 in Wt: 185 lbs BSA: 1.96 m2 HR: 66 bpm BP: 173 / 89 mmHg Technical Quality: Good Exam Date: 02/06/2025 10:15 AM Patient Status: O Admit Date: 02/06/2025 Exam Type: CA echo doppler color flow Complete two-dimensional, color flow and Doppler transthoracic echocardiogram is performed. Staff Referring Physician: Tristan Beebe DO Page Technician: Madison Meza Attending Provider: Tristan Beebe DO Summary 1. Complete two-dimensional, color flow and Doppler transthoracic echocardiogram is performed. 2. Left ventricular chamber dimension is normal. 3. Left ventricular systolic function is normal, estimated at 65-70. 4. There is mild concentric increased left ventricular wall thickness. 5. The left ventricular diastolic function is grade I diastolic dysfunction. 6. E/e' 11 is mildly elevated. 7. Left atrial chamber dimension is mildly enlarged. 8. There is mild aortic valve sclerosis. 9. There is mild mitral valve regurgitation. Left Ventricle E/e' 11 is mildly elevated. Left ventricular chamber dimension is normal. Left ventricular systolic function is normal, estimated at 65-70. There is mild concentric increased left ventricular wall thickness. The left ventricular diastolic function is grade I diastolic dysfunction. Right Ventricle Right ventricular chamber dimension is normal. Right ventricular systolic function is normal and with normal TAPSE 2.0 cm. Left Atria Left atrial chamber dimension is mildly enlarged. Right Atria Right atrial chamber dimension is normal. Aortic Valve The aortic valve is trileaflet. There is mild aortic valve sclerosis. There is no aortic valve stenosis. There is no aortic valve regurgitation. Pulmonic Valve The pulmonic valve is not well visualized. Mitral Valve There is no mitral valve stenosis. There is mild mitral valve regurgitation. Tricuspid Valve There is no tricuspid valve regurgitation. Pericardium/Pleural There is no pericardial effusion. Inferior Vena Cava Normal inferior vena cava with >50% collapse upon inspiration consistent with normal right atrial pressure, 5 mmHg. Aorta The aortic root size at the sinus of Valsalva is normal. Left Ventricular Outflow Tract Name Value Normal LVOT 2D LVOT Diameter 2.0 cm LVOT Doppler LVOT Peak Velocity 145 cm/s LVOT Peak Gradient 8 mmHg LVOT Mean Gradient 4 mmHg LVOT VTI 40 cm LVOT VTI/AV VTI Ratio 0.8 LVOT Stroke Volume 121 ml LVOT CO 7.8 l/min LVOT CI 4.0 l/min/m2 Pulmonic Valve Name Value Normal RVOT Doppler RVOT Peak Velocity 88 cm/s RVOT Peak Gradient 3 mmHg PV Doppler PV Peak Velocity 96 cm/s PV Peak Gradient 4 mmHg Mitral Valve Name Value Normal MV Diastolic Function MV E Peak Velocity 81 cm/s MV A Peak Velocity 104 cm/s MV E/A 0.8 MV Decel Time (PW) 254 ms MV Annular TDI MV E/e' (Septal) 10.6 MV E/e' (Lateral) 11.6 MV E/e' (Average) 11.1 Tricuspid Valve Name Value Normal Estimated PAP/RSVP RA Pressure 5 mmHg <=5 Aortic Valve Name Value Normal AV Doppler AV Peak Velocity 207 cm/s AV Peak Gradient 17 mmHg AV Mean Gradient 8 mmHg AV VTI 52 cm AV Area (Cont Eq VTI) 2.3 cm2 >=3.0 AV Area (Cont Eq Hernando) 2.1 cm2 AV DI (Hernando) 0.70 AV Regurgitation 2D LVOT Area 3.1 cm2 Ventricles Name Value Normal LV Dimensions 2D/MM IVS Diastolic Thickness (2D) 1.1 cm 0.6-1.0 LVID Diastole (2D) 4.3 cm 3.8-5.2 LVIW Diastolic Thickness (2D) 1.3 cm 0.6-0.9 LVID Systole (2D) 2.8 cm 2.2-3.5 LVOT Diameter 2.0 cm LV Mass (2D Cubed) 192.99 g 67.00-162.00 LV Mass Index (2D Cubed) 99 g/m2 43-95 Relative Wall Thickness (2D) 0.62 <=0.42 LV Fractional Shortening/Ejection Fraction 2D/MM LV Fractional Shortening (2D) 34 % 27-45 LV EF (2D Teichholz) 63 % LV Diastolic Volume (4C MOD) 105 ml LV EF (4C MOD) 72 % LV Diastolic Volume (2C MOD) 88 ml LV EF (2C MOD) 66 % LV Diastolic Volume (BP MOD) 97 ml 46-106 LV Diastolic Volume Index (BP MOD) 49 ml/m2 29-61 LV Systolic Volume (BP MOD) 30 ml 14-42 LV Systolic Volume Index (BP MOD) 16 ml/m2 8-24 LV EF (BP MOD) 69 % 54-74 LV Diastolic Length (4C) 7.9 cm LV Systolic Length (4C) 6.8 cm LV Stroke Volume (4C MOD) 76 ml Atria Name Value Normal LA Dimensions LA Volume (4C A-L) 45 ml LA Volume (BP A-L) 39 ml RA Dimensions RA Area (4C) 11.4 cm2 <=18.0 Report Signatures
== END 2025-02-06 07:32 | disposition home or self-care (01) ==
PROVIDERS: PCP Family Medicine; Visit Provider Internal Medicine Cardiovascular Disease
DX: R93.1 Abnormal findings on diagnostic imaging of heart and coronary circulation (principal); R06.09 Other forms of dyspnea; R07.9 Chest pain, unspecified
CPT/HCPCS: 78452; 93306; A9502; J2785

== ENCOUNTER 2025-04-25 10:13 | Outpatient (CLI) | payer MEDICARE, SELFPAY ==
[2025-04-25 10:50] LABS: Hematocrit 39.8 % (37.0-47.0); Hemoglobin 13.5 g/dL (12.0-15.0); Immature Granulocyte Percent A 0.3 % (0-0.5); Lymphocytes Absolute Auto 1.60 K/mm3 (0.9-3.2); Mean Corpuscular HGB Conc 33.9 g/dl (32-36); Mean Corpuscular Hemoglobin 30.8 pg (26-34); Mean Corpuscular Volume 90.7 fl (80-100); Nucleated Red Blood Cells Absolute Auto 0.000 K/mm3 (0.0-0.012); Nucleated Red Blood Cells Perc 0.0 % (0.0-0.2); Platelet Count Result 350 k/mm3 (150-375); Red Blood Count 4.39 M/mm3 (4.2-5.4); White Blood Count 7.6 K/mm3 (4.5-10.0)
[2025-04-25 10:59] LABS: Albumin Level 4.8 g/dL (3.5-5.1)
[2025-04-25 11:00] LABS: Hemoglobin A1C 5.8 % (<5.7)
[2025-04-25 11:02] LABS: INR 0.9; Prothrombin Time 12.2 Seconds (11.1-14.7)
[2025-04-25 11:03] LABS: Partial Thromboplastin Time 27.6 Seconds (22.3-36.8)
[2025-04-25 11:04] LABS: Anion Gap 8 mmol/L (4-12); Blood Urea Nitrogen 21 mg/dL (7-17); Calcium 9.8 mg/dL (8.4-10.2); Carbon Dioxide 23 mmol/L (22-30); Chloride 104 mmol/L (98-107); Estimated Glomerular Filt Rate 46; Glucose 106 mg/dL (65-110); Potassium 4.2 mmol/L (3.4-5.0); Sodium 135 mmol/L (137-145)
[2025-04-25 12:03] LABS: MRSA (PCR) NOT DETECTED (NOT DETECTE)
== END 2025-04-25 10:14 | disposition home or self-care (01) ==
LOC: ANHSURGERY 10:17
PROVIDERS: Anesthesiology; PCP Family Medicine; Visit Provider Orthopaedic Surgery
DX: M17.11 Unilateral primary osteoarthritis, right knee (principal); N18.32 Chronic kidney disease, stage 3b; Z01.818 Encounter for other preprocedural examination
CPT/HCPCS: 36415; 80048; 80307; 82040; 83036; 85025; 85610; 85730; 86850; 86900; 86901; 87641

== ENCOUNTER 2025-05-02 01:43 | Day surgery (SDC) | payer MEDICARE, SELFPAY ==
--- NOTE | 2024-11-30 08:53 | PC.NURSE ---
Report to the Outpatient Waiting Room, entrance under the green pavilion located off [facility], at time 6 am on date __12/25/24 . Planned Procedure Time: _7:30 am .? Time changes happen often and if your time is changed the preop area will call you the afternoon before. - You and your visitor will be asked to self-screen and do not enter if you have any COVID symptoms. Please call surgeon if you need to reschedule. - A mask is optional within the hospital at this time. Patients may have clear liquids (water, carbonated beverages, clear teas, apple juice) until 3 hours prior to surgery ( 4:30 am) with a maximum of 20 ounces. - No food from midnight until time of surgery and no smoking, or chewing tobacco (or any form of nicotine). No chewing gum, candy or mints. Take only the following medications with a SIP of water on the morning of surgery: __AMLODIPINE DO NOT STOP ANY OF YOUR OTHER PRESCRIPTION MEDICATIONS PRIOR TO SURGERY EXCEPT THE FOLLOWING Hold all vitamins and supplements for 3 days per anesthesiologist. LAST DOSE12/21/24 Medications to discontinue per physician NONE Please no make-up, nail upper sorbian, hairspray, perfume, deodorant, or body powder the day of surgery.? No jewelry (including any body piercings) or valuables the day of surgery, leave them at home.? Please take a shower or bath the night before, or the morning of, surgery with an antibacterial soap.? Wear comfortable, loose fitting clothing.? Children are encouraged to wear pajamas. - Jewelry must be removed prior to entering the operating room.? Rings and piercings that are not removed may be cut off. - The hospital will not accept responsibility for valuables.? - Please leave all valuables, including medications, at home the day of surgery. If you are going home after surgery, a licensed construction driver must drive you home.? - NO public transportation without another adult if you receive anesthesia. - We recommend that an adult stay with you for 24 hours following discharge. - We also recommend that you do not drive, make important decision, drink alcoholic beverages, or take any drugs that were not prescribed by your health care provider for at least 24 hours after your discharge time. For Pediatric surgeries, we recommend two adults accompany the child home. Follow any additional instructions given to you from your surgeon. verbal and written instructions given to __PATIENT and asked if any additional questions and then verbalized understanding. Patient advised to call surgeon office or pre surgery nurse liaison [phone] if any additional questions.
[2024-11-30 09:10] VITALS: BMI 33.0
[2024-11-30 09:44] VITALS: BP 162/73; PULSE 72; RESP 18; TEMP 37.5; O2SAT 97
--- NOTE | 2025-04-17 10:07 | PC.NURSE ---
[facility] has started construction of its new state of the art ER which will open Spring 2026. With this, we anticipate parking may be a challenge for some our surgical patients and families. Parking spaces are limited but are available for all Surgical, obstetrics, and ER patients sharing this lot. If you arrive and find you are having a hard time finding a parking space, please note that we understand the challenges, please drive around the hospital and park near Hospital Entrance 1. When you enter this entrance, you can ask a volunteer to direct or take you back to the surgical waiting area to check in. We appreciate everyone?s understanding of these expected challenges while we build for your future. Report to the Outpatient Waiting Room, entrance under the green pavilion located off [address], at time __6 AM on date _05/02/25 . Planned Procedure Time: __7:30 AM .? Time changes happen often and if your time is changed the preop area will call you the afternoon before. - You and your visitor will be asked to self-screen and do not enter if you have any COVID symptoms. Please call surgeon if you need to reschedule. - A mask is optional within the hospital at this time. Patients may have clear liquids (water, carbonated beverages, clear teas, apple juice) until 3 hours prior to surgery( 4:30 AM) with a maximum of 20 ounces. - No food from midnight until time of surgery and no smoking, or chewing tobacco (or any form of nicotine). No chewing gum, candy or mints. - Take only the following medications with a SIP of water on the morning of surgery: ___AMLODIPINE DO NOT STOP ANY OF YOUR OTHER PRESCRIPTION MEDICATIONS PRIOR TO SURGERY EXCEPT THE FOLLOWING Hold all vitamins and supplements for 3 days per anesthesiologist.LAST DOSE 04/28/25 Medications to discontinue per physician NONE Please no make-up, nail telugu, hairspray, perfume, deodorant, or body powder the day of surgery.? No jewelry (including any body piercings) or valuables the day of surgery, leave them at home.? Please take a shower or bath the night before, or the morning of, surgery with an antibacterial soap.? Wear comfortable, loose fitting clothing.? Children are encouraged to wear pajamas. - Jewelry must be removed prior to entering the operating room.? Rings and piercings that are not removed may be cut off. - The hospital will not accept responsibility for valuables.? - Please leave all valuables, including medications, at home the day of surgery. If you are going home after surgery, a licensed chuck wagon driver must drive you home.? - NO public transportation without another adult if you receive anesthesia. - We recommend that an adult stay with you for 24 hours following discharge. - We also recommend that you do not drive, make important decision, drink alcoholic beverages, or take any drugs that were not prescribed by your health care provider for at least 24 hours after your discharge time. Follow any additional instructions given to you from your surgeon. Telephone instructions given to __PATIENT and asked if any additional questions and then verbalized understanding. Patient advised to call surgeon office or pre surgery nurse liaison [phone] if any additional questions.
--- NOTE | 2025-04-17 10:32 | PC.NURSE ---
STATES NO CHANGE IN HEALTH HX SINCE LAST INTERVIEW. HAD NUCLEAR STRESS 02/07/25 WNL
[2025-05-02] VITALS (12 sets, daily range): BP systolic 123–168; BP diastolic 42–76; PULSE 69–96; RESP 12–21; TEMP 35.9–37; O2SAT 91–100; BMI 32.4
--- NOTE | ~2025-05-02 | XR_ITS ---
EXAMINATION: [id number] DATE: 05/02/2025 10:23 INDICATION: Postoperative evaluation following right total knee arthroplasty. TECHNIQUE: Anteroposterior and lateral views of the right knee were obtained. COMPARISON: 04/15/2025 FINDINGS: Right total knee arthroplasty without patellar resurfacing appears well seated and in near anatomic alignment. No fractures identified. Expected postoperative subcutaneous and intra-articular gas. IMPRESSION: 1. Right total knee arthroplasty, negative for postoperative purposes. Reviewed, dictated and finalized at location A. TAL PROJECT ENGINEER
[2025-05-02] MEDS: ACETAMINOPHEN 500 MG TABLET 1000 MG PO (06:45)
[2025-05-02] MEDS: LACTATED RINGERS 1,000 ML 30 ML IV CONT (07:00)
[2025-05-02] MEDS: TRANEXAMIC ACID 1,000MG/ISO100 1,000 MG/100 ML BAG 200 MG IVPB (07:00)
--- NOTE | 2025-05-02 07:01 | WPDANESEPPF ---
Anes - Initial Pre Proc Eval Procedure: Operation Date: 05/02/25 07:30 Proposed Procedures p Right Total Knee Arthroplasty - Kain Almanza MD Date/Time: 05/02/25 07:01 Surgeon: Kain Almanza MD Pre Op Diagnosis: prim oa Rt Knee Patient Data Age: 75 Gender: F Height: 1.6 m Weight: 84.7 kg Last Vital Signs Temp 37.5 C 11/30/24 09:44 Pulse 72 11/30/24 09:44 Resp 18 11/30/24 09:44 BP 162/73 H 11/30/24 09:44 Pulse Ox 97 11/30/24 09:44 O2 Del Method Room Air 11/30/24 09:44 Allergies Allergy/AdvReac Type Severity Reaction Status Date / Time Sgzoatn-IZN-CwF Reductase Allergy Severe Other Verified 04/17/25 10:07 Inhibitor ezetimibe Allergy Intermediate hives, Verified 04/17/25 10:07 BURNING IN THE CHEST hydrochlorothiazide Allergy Unknown Hives Verified 05/02/25 06:57 irbesartan Allergy Unknown Hives Verified 05/02/25 06:57 shellfish derived Allergy Swelling Verified 04/17/25 10:07 of Lip/Tongue/Throat lisinopril AdvReac Intermediate cough Verified 04/17/25 10:07 celecoxib AdvReac Unknown Other Verified 04/17/25 10:07 evolocumab (From Repatha AdvReac Other Verified 04/17/25 10:07 SureClick) Home Medications ?Medication ?Instructions ?Recorded ?Confirmed ?Type omega 0-bqa-qaq-fish oil 100 2 cap PO BID 09/27/24 03/27/25 History mg-160 mg-1,000 mg capsule (Fish Oil) amlodipine 5 mg tablet See Rx Instructions .Route 01/14/25 04/17/25 Rx .COMPLEX #30 tabs calcium 300 1 sc PO DAILY 02/07/25 04/17/25 History mg-chondroitin,collagen,glycosam 1,700 mg/scoop oral powdr magnesium glycinate 120 mg (as 240 mg PO BID 02/07/25 04/17/25 History glycinate) capsule alirocumab 75 mg/mL subcutaneous 75 mg subcut Q14D #2 mL 04/10/25 04/17/25 Rx pen injector (Praluent Pen) multivitamin with calcium carb and 1 tablet PO DAILY 04/15/25 04/17/25 History iron tablet Patient hx anesthesia problems: none Family hx anesthesia problems: none Results Review: All pre-operative results and documents have been reviewed as part of the pre-operative evaluation. [facility] Past Medical History Medical History Chest pain Hyperlipidemia Benign essential HTN Postmenopausal Breast cancer screening Elevated BP without diagnosis of hypertension Encounter for medical examination to establish care Pneumonia Knee pain Bilateral knee swelling Elevated fasting blood sugar Lipid screening Fatigue Surgical History Surgical History History of total left knee replacement (~08/16/23) History of bladder surgery History of hysterectomy for benign disease (~1986) Family History Family History Father Family history of lung disease Unknown History of blood pressure problems Social History Social History Social History: Smoking status: Never smoker Second hand tobacco smoke exposure: No Additional smoking assessment comments: DENIES ANY FORM OF TOBACCO USE Alcohol intake: never Substance use: never Substance use type: does not use Lack of Transportation: No Lack of Food: Never True Current Housing: I Have Housing Concerned About Future Housing: No Difficulty Paying Gas/Electric Bills: No Difficulty Paying for Meds: No Currently Unemployed: No Education: Trade/Vocational Certificate Difficulty w/ Childcare or Family Care: No Living arrangements: with family Additional living arrangements comments: [facility] Occupation/Education: retired Gender identity (if verbalized by the patient): Female Sexual Orientation (if Verbalized by the Patient): Straight or Heterosexual Spiritual care concerns: No Anes - Eval Final PreProcedure Day of Procedure 05/02/25 07:01 Patient weight: obese Heart: regular rate and rhythm Lungs: clear to auscultation Airway: Mallampati scale class II Neurological: alert and oriented Last oral intake: >/= 8 hours ASA classification: III Emergent: no Anesthetic plan: proceed Anesthesia type and monitoring: general LMA and standard monitoring Results Review: All pre-operative results and documents have been reviewed as part of the pre-operative evaluation. Informed Consent: The patient's anesthetic plan and its attendant risks and benefits were discussed with the patient/family/POA. Questions were solicited and answers provided to the satisfaction of the patient/family/POA.
--- NOTE | 2025-05-02 07:09 | WPDHPUPDATE1 ---
History and Physical Update Update Date/Time: 05/02/25 07:09 History and Physical has been reviewed, including an updated exam of the patient. There are NO changes in the patient's condition. Risks, benefits, and alternatives have been discussed and questions answered. Patient agrees to proceed with procedure.
[2025-05-02] MEDS: ceFAZolin 2 GM in SODIUM CHLORIDE 0.9% IV 50 ML 100 ML IVPB ×3 (07:23→23:23)
[2025-05-02] MEDS: SODIUM CHLORIDE 0.9% IV 38.7 ML, MORPHINE SULFATE INJ (*CRX) 2 MG, ROPivacaine HCL 1% 2... INFILTRATE (08:09)
[2025-05-02] MEDS: TRANEXAMIC ACID 1,000 MG/10 ML AMPUL 1000 MG IV PUSH (09:34)
--- NOTE | 2025-05-02 10:16 | P.OP_ITS ---
Procedure Note - Detailed Date of Procedure 05/02/25 Pre-op Diagnosis Right knee degenerative arthritis. Post-op Diagnosis Same Procedure Performed Calipered, kinematically aligned total knee replacement right knee. Surgeon Kain Almanza MD Healthcare Science Specialist Keila Villarreal PA-C Anesthesia General Findings According to the calipered kinematic alignment principles, the knee was balanced by the following verification checks incorporating 6 caliper measurements, using an insert goniometer to select the insert thickness, and adjusting the tibial resection following the kinematic alignment algorithm (see figure 160.10 published in [employer] chapter on kinematic alignment total knee arthroplasty.) The steps verified the femoral and tibial components were kinematically aligned coincident to the patient's pre arthritic joint lines, which closely restored the flandreau tibial compartment forces and ligament laxities without ligament release. The Leanplumacta AdvactionK SperiKA knee, designed specifically for kinematic alignment, fit optimally. PCL release required. Preoperative flexion limited to 105?. Postoperative flexion 125?. There was a 5 mm venous bleb just medial to the posterior cruciate ligament. This was tied off with silk. The record of verification checks were documented and scanned into the chart. Distal Femoral Resection: Distal Medial 6 mm(cartilage worn), Distal Lateral 8 mm Target thickness of 8mm Unworn, 6mm Worn (No Cartilage). Posterior Femoral Resection: Posterior Medial 5 mm(cartilage worn), Posterior Lateral 7 mm. Target thickness of 7mm Unworn, 5mm Worn (No Cartilage). Description of Procedure General anesthesia was administered. A well-padded tourniquet was placed high on the thigh. The limb was prepped and draped in the usual sterile fashion. The limb was exsanguinated and the tourniquet inflated to 300 mmHg during exposure and cementation. A longitudinal incision was created over the midline of the knee. Sharp dissection was taken through subcutaneous tissues. Electrocautery was used for hemostasis. A subvastus approach to the knee joint was performed. The ACL, anterior horns of the menisci, and fat pad were excised, and a subperiosteal dissection was carried along the posterior medial border of the tibia. Starting midway between the top of the notch in the anterior femoral cortex, I drilled a 9 mm diameter hole parallel to the anterior cortex to minimize flexion of the femoral component and promote patella tracking. I verified the existence of a 5-10 mm bone bridge between the posterior aspect of the hole and the anterior limit of the intercondylar notch. An intraosseous positioning jackie was inserted 10 cm into the femur perpendicular to the distal joint line and parallel to the anterior cortex. I used a distal femoral referencing guide that compensated 2 mm when the cartilage was worn on the distal medial femoral condyle, and 2 mm when the cartilage was worn on the distal lateral femoral condyle. The basis for setting the distal and posterior femoral resection guide is knowing that the varus and valgus grade II to IV Kellegren-Vinh osteoarthritic knees have negligible bone wear at 0? and 90? and that the mean full-thickness cartilage wear approxim ates 2 mm. I measured the thickness of distal femoral resections with a caliper to +/- 0.5 mm. The thickness of each resection was adjusted to match the thickness of the respective condyle of the femoral component within 0.5 mm of target after compensating for cartilage wear and kerf. When the distal resection was 1-2 mm too thin, a recut guide was used to adjust the cut. When the distal resection was too thick, a 1 or 2 mm thick washer was fixed to the back of the 4-in-1 chamfer block to judith a corrective gap between the femoral component and distal femur. I set posterior femoral referencing guide at 0? orientation to position the pin holes for the 4 in 1 chamfer block. The nataliia wing measured the width of the distal femoral resection and selected the size of the 4 in 1 chamfer block and femoral component. The AP sizer confirmed the size. I measured the thickness of the posterior femoral resections with a caliper before making the anterior and chamfer cuts. I adjusted the thicknesses of each resection to match the thickness of the respective condyle of the femoral component within +/-0.5 mm after compensating for cartilage wear and curve. When a posterior resection femoral resection was 1-2 mm too thick or thin a corrective correction was made by shifting or rotating the 4 in 1 chamfer block as needed. The chamfer block was secured in the correct position with compression screws. The anterior and chamfer femoral resections were made. These caliper measurements and corrections verified that the femoral component was set coincident with the patient's pre-arthritic distal and posterior femoral joint lines. I removed all the medial and lateral femoral and tibial osteophytes to restore the pre arthritic length of the medial and lateral collateral ligaments. I ronnie AP lines along the major axis of the lateral tibial plateau in between the tibial spines which identified the flexion extension plane of the knee. A conventional extramedullary tibial resection guide was applied to the ankle. An nataliia wing was placed medially in the saw slot. The varus valgus angle of the tibial resection guide was adjusted until the guide paralleled the proximal tibial articular surface after compensating for cartilage and bone wear. The slope of flexion extension angle of the tibial resection guide was adjusted until the nataliia wing paralleled the slope of the medial tibia after compensating for wear. The AP axis of the tibial resection guide was adjusted parallel to the two lines. The proximal tibia was resected, partially releasing the insertion of the post erior cruciate ligament. The thickness of the medial and lateral lateral tibial condyle was measured at the base of the tibial spines. I visually verified the slope of the medial border of the resection was parallel to the patient's pre arthritic slope after compensating for cartilage and bone wear. I removed the remnants of the posterior horns of the menisci and posterior osteophytes and cauterized the inferior lateral genicular vessels. The Aquamantys bipolar device was also used to for additional hemostasis. When the knee had a preoperative flexion contracture of 20? or more I teased the capsule off the posterior femur with a curved 3 quarter-inch osteotome. I administered the posterior femoral periosteal injection by delivering 10 cc using a 20 gauge spinal needle at the most medial and 10 cc at the most lateral femoral spur surface which reduced the risk of injury to the posterior neurovascular structures. I followed 6 options in a decision tree to fine tune the varus valgus and posterior slope orientation of the tibial component to restore the patient's pre arthritic tibial joint line and limb alignment. First, I adjusted the varus- valgus orientation of the proximal tibia resection working in 1 degree to 2 degree increments until there was negligible medial and lateral lift off of the distal femoral and proximal tibial resection from the spacer block during a varu s valgus laxity assessment in extension. I selected the largest anatomic shape trial tibial base plate that fit within the cortical boundary of the proximal tibial resection. The base plate was best fit parallel to the cortical boundary which set the Internal-external orientation of the anterior to posterior and medial to lateral positions. The best fit method set the AP axis of the tibial base plate and insert parallel to the flexion extension plane of the pre arthritic knee. I pinned the trial tibial base plate, prepared the cruciate slot, and fixed the base plate to the tibia with the cruciate stem. I inserted the trial femoral component. The knee was placed in full extension. Varus valgus laxity is of the knee with trial components were assessed. When asymmetric laxity was observed a 1-2 degree varus or valgus recut guide was used to fine tune the tibial resection until the laxity was 1 degree or less in full extension like the flandreau knee. The following steps determined the optimal insert thickness within +/-1 mm. First I inserted an insert goniometer that matched the thickness of the spacer block. I reduced the patella and then with the knee in maximum extension, I verified the knee hyperextended a few degrees and had negligible varus valgus laxity, like the pre arthritic knee. Next, I measured the external tibial orientation which was the angle the insert goniometer intersected the sagittal line on the medial condyle of the femoral trial component. Then with the knee in 15-30 degrees flexion I verified a 3-4 mm gap in the lateral compartment and no gap in the medial compartment during a 2nd varus valgus laxity test. Next, I placed the knee in 90? of flexion and the foot resting on the operating table and measured the internal tibial orientation. I repeated the steps until I identified the insert thickness that provided the highest external tibia orientation in extension and the highest internal tibial orientation at 90? flexion without anterior lift-off of the insert from the tibial base plate. The insert with this thickness was implanted. I applied a posterior drawer test with the tibia distracted by gravity and verified no posterior subluxation of the tibia relative to the femur. The thickness of the flandreau patella was measured with a caliper. The lateral patellar facet was resected using the oscillating saw. The patella remained centered on the trochlea and tracked well throughout the entire arc of flexion and extension. I used pulse lavage to clean the bony surfaces of debris and dried bone. I cemented the tibial, femoral, and patellar components using 1 bag of methylmethacrylate with Gentamycin, then rechecked the stability at full extension, 15-30 degrees, and 90? flexion and verified sabianist of the entire arc of motion of the knee. The circulating nurse confirmed the sponge and needle counts were correct. I used pulse lavage to rinse the joint and wound. The extensor mechanism was closed with interrupted #1 Vicryl suture and #1 running Stratafix suture. The subcutaneous layer was closed with interrupted #1 Vicryl suture followed by 2-0 Stratafix and 3-0 Stratafix. Steri-Strips placed on the skin. Silver impregnated occlusive dressing applied to the wound. A light gauze wrap and Fan bandage were placed. The patient was transferred to the recovery room in stable condition. There were no complications. Physician assistant fitness manager, Keila Villarreal PA-C, required for surgery; including patient positioning, draping, tissue retraction, maintaining instrument position, cement removal, wound closure, and dressing placement. Implants Medacta GMK spheriKA Femoral component SpheriKA size 2+, tibial component size 2, vitamin-E flex insert, thickness 10 mm Estimated Blood Loss 50 Drains No Pathology None sent Complications No immediate complications Condition Stable Disposition PACU [facility] Billing Surgery - Charge Forward: Surgery Billing
[2025-05-02] MEDS: ONDANSETRON INJ 4 MG/2 ML VIAL IV PUSH (11:02)
--- NOTE | 2025-05-02 11:32 | ADMGEN ---
This patient, Evelin Harper, was admitted to [facility] Surg Room 325-02. Patient/family oriented to hospital policies and general routines including ID bracelet, bed and alarms, visiting hours, pain management, procedures, bathroom and other care routines, personal items, smoking policy, room service/diet, and visiting hours. Information on how to activate the Rapid Response Team has been discussed. Patient/Family are encouraged to report perceived risks to care and to ask questions if they do not understand what they are told or what they should do.
[2025-05-02] MEDS: SODIUM CHLORIDE 0.9% IV 1,000 ML 125 ML IV CONT (11:49)
[2025-05-02] MEDS: FAMOTIDINE 20 MG TABLET PO ×2 (13:32→21:10)
[2025-05-02] MEDS: ACETAMINOPHEN 325 MG TABLET 650 MG PO ×3 (13:32→23:23)
[2025-05-02] MEDS: SENNA/DOCUSATE SODIUM TABLET 2 TAB PO (13:32)
[2025-05-02] MEDS: oxyCODONE/ACETAMINOPHEN (*CRX) 5-325 MG TABLET 1 TABLET PO (13:33)
[2025-05-02] MEDS: ASPIRIN 81 MG ENTERIC TABLET PO ×2 (13:34→21:10)
[2025-05-03 00:18] VITALS: BP 124/72; PULSE 74; RESP 20; TEMP 37; O2SAT 93
[2025-05-03 03:56] VITALS: BP 134/58; PULSE 67; RESP 20; TEMP 36.9; O2SAT 95
[2025-05-03 06:25] LABS: Hematocrit 35.6 % (37.0-47.0); Hemoglobin 12.0 g/dL (12.0-15.0); Immature Granulocyte Percent A 0.5 % (0-0.5); Lymphocytes Absolute Auto 1.22 K/mm3 (0.9-3.2); Mean Corpuscular HGB Conc 33.7 g/dl (32-36); Mean Corpuscular Hemoglobin 31.7 pg (26-34); Mean Corpuscular Volume 94.2 fl (80-100); Nucleated Red Blood Cells Absolute Auto 0.000 K/mm3 (0.0-0.012); Nucleated Red Blood Cells Perc 0.0 % (0.0-0.2); Platelet Count Result 284 k/mm3 (150-375); Red Blood Count 3.78 M/mm3 (4.2-5.4); White Blood Count 12.9 K/mm3 (4.5-10.0)
[2025-05-03 06:47] LABS: Anion Gap 7 mmol/L (4-12); Blood Urea Nitrogen 18 mg/dL (7-17); Calcium 9.3 mg/dL (8.4-10.2); Carbon Dioxide 22 mmol/L (22-30); Chloride 108 mmol/L (98-107); Estimated CRCL calculation 41 ml/min; Estimated Glomerular Filt Rate 48; Glucose 137 mg/dL (65-110); Potassium 3.9 mmol/L (3.4-5.0); Sodium 137 mmol/L (137-145)
[2025-05-03] MEDS: ACETAMINOPHEN 325 MG TABLET 650 MG PO ×2 (06:49→12:46)
[2025-05-03] MEDS: ceFAZolin 2 GM in SODIUM CHLORIDE 0.9% IV 50 ML 100 ML IVPB (06:49)
[2025-05-03] MEDS: SENNA/DOCUSATE SODIUM TABLET 2 TAB PO (07:59)
[2025-05-03] MEDS: ASPIRIN 81 MG ENTERIC TABLET PO (07:59)
[2025-05-03] MEDS: FAMOTIDINE 20 MG TABLET PO (07:59)
[2025-05-03 08:50] VITALS: BP 151/50; PULSE 83; RESP 16; TEMP 36.5; O2SAT 95
[2025-05-03 12:23] VITALS: BP 148/58; PULSE 75; RESP 16; TEMP 36.5; O2SAT 100
--- NOTE | 2025-05-03 12:24 | PM.PNORT ---
Progress Note: A&P Assessment and Plan (1) Status post total right knee replacement: Code(s): Z96.651 - Presence of right artificial knee joint Status: Acute Assessment and Plan: Postop day 1: total knee arthroplasty. Patient tolerated procedure well. No complications. Pain manageable with pain medication. No numbness or tingling. We had a lengthy discussion regarding postoperative wound care, limitations, expectations, and exercises. Patient shows good understanding. She has had initial physical therapy and is tolerating it well. Patient has followup appointment with Dr. Almanza in 3 weeks. Subjective Subjective Date/Time Seen: 05/03/25 12:24 Interval history: Patient resting comfortably. No distal numbness or tingling. No other complaints. Review of Systems Review of Systems: All systems reviewed & are unremarkable except as noted in HPI and below Exam Narrative: 75-year-old overweight female. Resting comfortably in chair. Alert and oriented x3. No acute distress. Wearing compression socks bilaterally. Dressing dry and intact without drainage. Mild swelling. No ecchymosis. No erythema. No hematoma. Range of motion limited due to pain 0-100. Calf nontender. Neurologic status intact. No varicosities. Distal pulses palpable. Quad fires. Objective Data Vital Signs Vital Signs: Vital Signs - 24 hr 05/02/25 12:50 05/02/25 13:52 05/02/25 14:35 Temperature 96.9 F L Pulse Rate 87 Respiratory Rate 20 Blood Pressure 127/53 L Pulse Oximetry 96 Oxygen Delivery Room Air Room Air 05/02/25 16:50 05/02/25 20:50 05/03/25 00:18 Temperature 97.4 F L 98.4 F 98.6 F Pulse Rate 94 96 74 Respiratory Rate 18 20 20 Blood Pressure 146/61 H 140/57 L 124/72 Pulse Oximetry 95 93 93 Oxygen Delivery 05/03/25 03:56 05/03/25 08:00 05/03/25 08:50 Temperature 98.4 F 97.7 F Pulse Rate 67 83 Respiratory Rate 20 16 Blood Pressure 134/58 L 151/50 H Pulse Oximetry 95 95 Oxygen Delivery Room Air Intake/Output Intake/Output: Intake & Output 04/30/25 05/01/25 05/02/25 05/03/25 23:59 23:59 23:59 23:59 Intake Total 1050 890 Balance 1050 890 Meds/Results Medications: Active Medications Generic Name Dose Route Start Last Admin Trade Name Freq PRN Reason Stop Dose Admin Acetaminophen 650 mg 05/02/25 12:00 05/03/25 06:49 Acetaminophen 325 Mg Tablet PO 650 mg Q6HR BLADIMIR Administration Amlodipine Besylate 5 mg 05/03/25 09:00 05/03/25 07:59 Amlodipine Besylate 5 Mg Tablet BY MOUTH 5 mg QAM BLADIMIR Administration Aspirin 81 mg 05/02/25 11:05 05/03/25 07:59 Aspirin 81 Mg Enteric Tablet PO 81 mg Q12HR BLADIMIR Administration Cyclobenzaprine HCl 5 mg 05/02/25 11:05 Cyclobenzaprine Hcl 5 Mg Tablet PO Q8H PRN Spasms Diphenhydramine HCl 25 mg 05/02/25 11:05 05/02/25 11:43 Diphenhydramine Hcl Inj 50 Mg/Ml Vial IV PUSH 25 mg Q6H PRN Administration Itching Famotidine 20 mg 05/02/25 11:05 05/03/25 07:59 Famotidine 20 Mg Tablet PO 20 mg Q12HR BLADIMIR Administration Hydromorphone HCl 1 mg 05/02/25 11:05 Hydromorphone Hcl Inj (*Crx) 1 Mg/Ml Syr IV PUSH Q2H PRN Breakthrough Pain Rated 7-10 or NPO Hydromorphone HCl 0.5 mg 05/02/25 11:05 Hydromorphone Hcl Inj (*Crx) 1 Mg/Ml Syr IV PUSH Q2H PRN Breakthrough Pain Rated 4-6 or NPO Ibuprofen 800 mg in 200 mls @ 400 mls/hr 05/02/25 11:05 Caldolor 800 Mg/200 Ml IVPB Q6H PRN Breakthrough Pain Rated 1-3 or NPO Naloxone HCl 0.1 mg 05/02/25 11:05 Naloxone Hcl 0.4 Mg/Ml Vial IV PUSH Q2M PRN Opiate Reversal Ondansetron HCl 4 mg 05/02/25 11:05 Ondansetron Inj 4 Mg/2 Ml Vial IV PUSH Q4H PRN Nausea And Vomiting Oxycodone/Acetaminophen 1 tablet 05/02/25 11:05 05/02/25 13:33 Oxycodone/Acetaminophen (*Crx) 5-325 Mg Tablet PO 1 tablet Q4H PRN Administration Pain Rated 4-6 Oxycodone/Acetaminophen 1 tab 05/02/25 11:05 Oxycodone/Acetaminophen (*Crx) 10-325 Mg Tablet PO Q6H PRN Pain Rated 7-10 Polyethylene Glycol 17 gm 05/02/25 11:05 05/03/25 07:59 Polyethylene Glycol 3350 17 Gm Powd.Pack PO 17 gm QAM BLADIMIR Administration Prednisone 5 mg 05/02/25 17:00 05/02/25 17:23 Prednisone 5 Mg Tablet PO 5 mg DAILY@1700 BLADIMIR Administration Senna/Docusate Sodium 2 tab 05/02/25 11:05 05/03/25 07:59 Senna/Docusate Sodium Tablet PO 2 tab BID BLADIMIR Administration Tramadol HCl 50 mg 05/02/25 11:05 Tramadol Hcl (*Crx) 50 Mg Tablet PO Q4H PRN Pain Rated 1-3 Radiology Results: ITS Impressions Knee X-Ray 05/02/25 10:24 IMPRESSION: 1. Right total knee arthroplasty, negative for postoperative purposes. Labs Labs: Laboratory Results - last 24 hr 05/03/25 06:13 WBC 12.9 H RBC 3.78 L Hgb 12.0 Hct 35.6 L MCV 94.2 MCH 31.7 MCHC 33.7 RDW 12.4 Plt Count 284 MPV 9.1 Immature Gran % (Auto) 0.5 Neut % (Auto) 81.2 H Lymph % (Auto) 9.5 L [place] % (Auto) 8.7 H Eos % (Auto) 0.0 Baso % (Auto) 0.1 L Lymph # (Auto) 1.22 [place] # (Auto) 1.1 H Eos # (Auto) 0.0 Baso # (Auto) 0.0 Abs Immat Gran (auto) 0.06 H Absolute Neuts (auto) 10.5 H Absolute Nucleated RBC 0.000 Nucleated RBC % 0.0 Sodium 137 Potassium 3.9 Chloride 108 H Carbon Dioxide 22 Anion Gap 7 BUN 18 H Creatinine 1.11 H Estim Creat Clear Calc 41 Estimated GFR 48 L Glucose 137 H Calcium 9.3
== END 2025-05-03 14:00 | disposition home or self-care (01) ==
LOC: ANHSURGERY 07:13 → ANH3MEDSUR 11:08
PROVIDERS: Physician Assistant Surgical; PCP Family Medicine; Visit Provider Orthopaedic Surgery
PROC: (CPT 27447; principal; 2025-05-02 07:30)
DX: M17.11 Unilateral primary osteoarthritis, right knee (principal)
CPT/HCPCS: 27447; 36415; 73560; 80048; 85025; 97110; 97161; 97165; 97530; 97535; J0690; A9270; C1713; J0166; J1100; J1171; J1200; J2003; J2250; J2270; J2405; J2704; J2795; J3010; J3290; J7030; J7120; J7512